=== PATIENT | male | born 1995 | race Two or more races ===

== ENCOUNTER 2018-04-07 22:44 | Emergency (ER) | payer OTHER ==
[~2018-04-07] VITALS: Ht 175.3 cm; Wt 72.6 kg
[~2018-04-07 22:44] MED LIST: ROBITUSSIN15 MG/5 ML PO; TYLENOL32 MG/ML PO; [UNRECOGNIZED DRUG - OTHER] PO
[2018-04-08] MEDS ORDERED: ULTRACET PO (02:10)
[2018-04-08] MEDS ORDERED: CEPHALEXIN500 MG PO (02:10)
== END 2018-04-08 02:21 | disposition home or self-care (01) ==
LOC: ER 22:44
DX: S31.21XA Laceration without foreign body of penis, initial encounter (principal); W45.8XXA Other foreign body or object entering through skin, initial encounter; Y93.89 Activity, other specified; Y92.89 Other specified places as the place of occurrence of the external cause; Y99.8 Other external cause status